=== PATIENT | male | born 1965 | race African-American/Black ===

== ENCOUNTER 2020-09-15 09:10 | Inpatient (IN) ==
[2020-09-15 10:23] LABS: Basophils % 0.2 % (0.0-0.8); Eosinophils % 0.3 % (0.00-10.9); Immature Granulocytes Absolute 0.23 #; Lymphocytes # 0.4 10*3/uL (1.4-4.0); Lymphocytes % 3.8 % (21.2-54.2); Mean Corpuscular HGB Conc 35.3 GM/DL (32-36); Mean Corpuscular Volume 87.4 FL (87-102); Mean Platelet Volume 12.1 FL (9.6-12.0); Monocytes % 6.4 % (1.7-12.7); NRBC # 0.02 10*3/uL; Neutrophils % 87.3 % (38.7-73.9); Platelet Count 183 T/CUMM (130-400); Red Blood Count 1.98 MC/CUMM (3.8-5.5); White Blood Count 11.5 T/CUMM (4-12)
[2020-09-15 10:45] LABS: Albumin 2.4 G/DL (3.4-5.0); Bilirubin,Total 1.3 MG/DL (0.20-1.00); Calcium 9.1 MG/DL (8.5-10.1); Osmolality,Calculated 291.3 MOS/KG (273-304); Potassium 3.6 MMOL/L (3.5-5.1); Total Protein 6.9 G/DL (6.4-8.2)
[2020-09-15 10:45] LABS: Hematocrit 17.3 VOL% (42.0-52.0); Hemoglobin 6.1 GM/DL (14.0-18.0)
[2020-09-15 10:48] LABS: Band Neutrophils 2 % (0-10); Lymphocytes 5 % (20-55); Microcytosis 1+; Platelet Estimate Adequate; Segmented Neutrophils 90 % (50-85); Total Cells Counted 100
[2020-09-15 10:49] LABS: Hypochromasia 1+
[2020-09-15] MEDS ORDERED: VANCOMYCIN INJ 1,000 MG in SODIUM CHLORIDE 0.9% 250 ML IV STA (10:54)
[2020-09-15] MEDS ORDERED: ONDANSETRON 4 MG/2 ML VIAL IV STA (10:55)
[2020-09-15] MEDS ORDERED: HYDROmorphone 2 MG/1 ML VIAL IV STA (10:55)
[2020-09-15] MEDS ORDERED: ONDANSETRON 4 MG/2 ML VIAL IV PRN (11:31)
[2020-09-15] MEDS ORDERED: ALBUTEROL/IPRATROPIUM 3 ML NEB RESP TX PRN (11:31)
[2020-09-15] MEDS ORDERED: hydrALAZINE 20 MG/1 ML VIAL IV PRN (11:31)
[2020-09-15] MEDS ORDERED: DEXTROSE 50% 25 GM/50 ML VIAL IV PRN (11:31)
[2020-09-15] MEDS ORDERED: GLUCAGON 1 MG VIAL IM PRN (11:31)
[2020-09-15] MEDS ORDERED: SODIUM CHLORIDE 0.9% 1,000 ML IV PRN (11:37)
[2020-09-15] MEDS ORDERED: VANCOMYCIN INJ 500 MG in SODIUM CHLORIDE 0.9% 100 ML IV PRN (12:44)
[2020-09-15] MEDS ORDERED: VANCOMYCIN INJ 750 MG in SODIUM CHLORIDE 0.9% 250 ML IV ONE (13:00)
[2020-09-15 13:52] LABS: Hematocrit 13.3 VOL% (42.0-52.0); Hemoglobin 4.5 GM/DL (14.0-18.0)
[2020-09-15] MEDS: PANTOPRAZOLE 40 MG VIAL IV SCH ×2 (17:36→21:18)
[2020-09-15] MEDS: INSULIN LISPRO 100 UNIT/ML SUBCUT SCH (17:37)
[2020-09-15] MEDS: PIPERACILLIN/TAZOBACTAM 3,375 MG in SODIUM CHLORIDE 0.9% 100 ML IV SCH (18:36)
[2020-09-15 22:48] LABS: Basophils % 0.3 % (0.0-0.8); Eosinophils # 0.1 10*3/uL (0.0-0.87); Eosinophils % 0.7 % (0.00-10.9); Hematocrit 21.6 VOL% (42.0-52.0); Immature Granulocytes % 2.1 %; Immature Granulocytes Absolute 0.25 #; Lymphocytes # 0.7 10*3/uL (1.4-4.0); Lymphocytes % 5.9 % (21.2-54.2); Mean Corpuscular HGB Conc 34.3 GM/DL (32-36); Mean Corpuscular Volume 90.4 FL (87-102); Mean Platelet Volume 11.3 FL (9.6-12.0); Monocytes % 7.8 % (1.7-12.7); Neutrophils % 83.2 % (38.7-73.9); Platelet Count 168 T/CUMM (130-400)
[2020-09-15 22:50] LABS: Hemoglobin 7.4 GM/DL (14.0-18.0); Red Blood Count 2.39 MC/CUMM (3.8-5.5)
[2020-09-16 01:53] LABS: Band Neutrophils 4 % (0-10); Lymphocytes 9 % (20-55); Segmented Neutrophils 79 % (50-85); Total Cells Counted 100
[2020-09-16 01:54] LABS: Hypochromasia 2+; Platelet Estimate Normal; Polychromasia Few; Target Cells 1+
[2020-09-16] MEDS: PIPERACILLIN/TAZOBACTAM 3,375 MG in SODIUM CHLORIDE 0.9% 100 ML IV SCH ×2 (03:09→16:18)
[2020-09-16] MEDS: INSULIN LISPRO 100 UNIT/ML SUBCUT SCH ×5 (03:10→23:31)
[2020-09-16 05:52] LABS: Basophils # 0.1 10*3/uL (0.0-0.2); Basophils % 0.4 % (0.0-0.8); Eosinophils # 0.1 10*3/uL (0.0-0.87); Eosinophils % 0.8 % (0.00-10.9); Hematocrit 22.1 VOL% (42.0-52.0); Hemoglobin 7.7 GM/DL (14.0-18.0); Immature Granulocytes % 2.8 %; Immature Granulocytes Absolute 0.35 #; Lymphocytes # 0.8 10*3/uL (1.4-4.0); Lymphocytes % 6.6 % (21.2-54.2); Mean Corpuscular HGB Conc 34.8 GM/DL (32-36); Mean Corpuscular Volume 90.6 FL (87-102); Mean Platelet Volume 11.3 FL (9.6-12.0); Monocytes % 7.6 % (1.7-12.7); Neutrophils % 81.8 % (38.7-73.9); Platelet Count 173 T/CUMM (130-400); Red Blood Count 2.44 MC/CUMM (3.8-5.5); Red Cell Distribution Width 15.2 % (9.3-17.3); White Blood Count 12.4 T/CUMM (4-12)
[2020-09-16 06:12] LABS: Calcium 9.5 MG/DL (8.5-10.1); Osmolality,Calculated 291.8 MOS/KG (273-304); Potassium 4.6 MMOL/L (3.5-5.1)
[2020-09-16 06:18] LABS: Band Neutrophils 6 % (0-10); Eosinophils 2 % (0-10); Lymphocytes 7 % (20-55); Metamyelocytes 1 %; Segmented Neutrophils 77 % (50-85)
[2020-09-16 06:23] LABS: Hypochromasia 2+; Platelet Estimate Normal; Polychromasia Few; Target Cells 1+
[2020-09-16 06:24] LABS: Total Cells Counted 100
[2020-09-16] MEDS ORDERED: SODIUM CHLORIDE 0.9% 1,000 ML IV PRN (08:18)
[2020-09-16] MEDS: PANTOPRAZOLE 40 MG VIAL IV SCH ×2 (08:27→20:56)
[2020-09-16 09:35] LABS: % Iron Saturation 29.4 % (18-50)
[2020-09-16] MEDS ORDERED: MORPHINE 2 MG/1 ML SYRINGE IV ONE (10:48)
[2020-09-16 11:08] LABS: Folate 11.99 NG/ML (5.38-24.0)
[2020-09-17] MEDS: PIPERACILLIN/TAZOBACTAM 3,375 MG in SODIUM CHLORIDE 0.9% 100 ML IV SCH (03:48)
[2020-09-17 06:10] LABS: Basophils % 0.2 % (0.0-0.8); Eosinophils # 0.1 10*3/uL (0.0-0.87); Eosinophils % 0.8 % (0.00-10.9); Hematocrit 24.3 VOL% (42.0-52.0); Hemoglobin 8.6 GM/DL (14.0-18.0); Immature Granulocytes % 2.8 %; Immature Granulocytes Absolute 0.39 #; Lymphocytes # 1.1 10*3/uL (1.4-4.0); Lymphocytes % 7.8 % (21.2-54.2); Mean Corpuscular HGB Conc 35.4 GM/DL (32-36); Mean Corpuscular Volume 87.7 FL (87-102); Mean Platelet Volume 11.1 FL (9.6-12.0); Monocytes % 6.9 % (1.7-12.7); NRBC # 0.02 10*3/uL; Neutrophils % 81.5 % (38.7-73.9); Platelet Count 206 T/CUMM (130-400); Red Blood Count 2.77 MC/CUMM (3.8-5.5); Red Cell Distribution Width 15.7 % (9.3-17.3); White Blood Count 13.7 T/CUMM (4-12)
[2020-09-17 06:38] LABS: Calcium 9.8 MG/DL (8.5-10.1); Osmolality,Calculated 294.2 MOS/KG (273-304); Potassium 4.5 MMOL/L (3.5-5.1); Thyroid Stimulating Hormone 0.915 uIU/ml (0.358-3.74)
[2020-09-17] MEDS: INSULIN LISPRO 100 UNIT/ML SUBCUT SCH ×4 (08:31→20:40)
[2020-09-17] MEDS: PANTOPRAZOLE 40 MG VIAL IV SCH ×2 (08:31→20:40)
[2020-09-17] MEDS ORDERED: HEPARIN 5,000 UNIT/1 ML VIAL ONE (14:53)
[2020-09-17] MEDS ORDERED: LIDOCAINE 1%/EPI INJ 20 ML VIAL ONE (14:53)
[2020-09-17] MEDS ORDERED: BUPIVACAINE MPF 0.25% 30 ML VIAL ONE (14:53)
[2020-09-17] MEDS ORDERED: VANCOMYCIN 500 MG VIAL ONE (15:34)
[2020-09-17] MEDS ORDERED: SODIUM CHLORIDE 0.9% 100 ML IV ONE (15:35)
[2020-09-17] MEDS ORDERED: propofoL 200 MG/20 ML VIAL IV ONE (16:51)
[2020-09-17] MEDS ORDERED: SODIUM CHLORIDE 0.9% 250 ML IV ONE ×2 (16:51→17:21)
[2020-09-17] MEDS ORDERED: LIDOCAINE 2% 5 ML VIAL ONE (16:51)
[2020-09-17] MEDS ORDERED: fentaNYL 100 MCG/2 ML VIAL ONE (17:08)
[2020-09-17] MEDS ORDERED: PHENYLEPHRINE 10 MG/1 ML VIAL IV ONE (17:10)
[2020-09-17] MEDS ORDERED: SEVOFLURANE 1 UNIT/15 MINUTE INH ONE ×2 (17:39)
[2020-09-17] MEDS ORDERED: PROMETHAZINE INJ 25 MG in SODIUM CHLORIDE 0.9% 50 ML IV PRN (17:42)
[2020-09-17] MEDS ORDERED: HYDROmorphone 2 MG/1 ML VIAL IV PRN (17:42)
[2020-09-17] MEDS ORDERED: MEPERIDINE 25 MG/1 ML VIAL IV PRN (17:42)
[2020-09-17] MEDS ORDERED: ONDANSETRON 4 MG/2 ML VIAL IV PRN (17:42)
[2020-09-17] MEDS ORDERED: diphenhydrAMINE 50 MG/1 ML VIAL IV PRN (17:42)
[2020-09-17] MEDS ORDERED: ACETAMINOPHEN INJ 1,000 MG/100 ML VIAL IV ONE ×2 (17:58→18:04)
[2020-09-18 05:42] LABS: Basophils % 0.2 % (0.0-0.8); Eosinophils # 0.1 10*3/uL (0.0-0.87); Eosinophils % 0.5 % (0.00-10.9); Hematocrit 22.6 VOL% (42.0-52.0); Hemoglobin 7.9 GM/DL (14.0-18.0); Immature Granulocytes % 2.3 %; Immature Granulocytes Absolute 0.28 #; Lymphocytes # 0.8 10*3/uL (1.4-4.0); Lymphocytes % 6.7 % (21.2-54.2); Mean Corpuscular Volume 89.3 FL (87-102); Mean Platelet Volume 11.3 FL (9.6-12.0); Monocytes % 6.6 % (1.7-12.7); NRBC # 0.02 10*3/uL; Neutrophils % 83.7 % (38.7-73.9); Platelet Count 207 T/CUMM (130-400); Red Blood Count 2.53 MC/CUMM (3.8-5.5); Red Cell Distribution Width 16.3 % (9.3-17.3); White Blood Count 12.4 T/CUMM (4-12)
[2020-09-18 06:03] LABS: Calcium 8.9 MG/DL (8.5-10.1)
[2020-09-18] MEDS: INSULIN LISPRO 100 UNIT/ML SUBCUT SCH ×4 (07:49→21:19)
[2020-09-18] MEDS: ceFAZolin 2,000 MG/50 ML DUPLEX IV SCH (18:40)
[2020-09-19 06:16] LABS: Basophils % 0.2 % (0.0-0.8); Eosinophils # 0.2 10*3/uL (0.0-0.87); Eosinophils % 1.2 % (0.00-10.9); Hematocrit 20.7 VOL% (42.0-52.0); Hemoglobin 7.2 GM/DL (14.0-18.0); Immature Granulocytes % 2.2 %; Immature Granulocytes Absolute 0.27 #; Lymphocytes # 1.3 10*3/uL (1.4-4.0); Lymphocytes % 10.3 % (21.2-54.2); Mean Corpuscular HGB Conc 34.8 GM/DL (32-36); Mean Corpuscular Volume 88.8 FL (87-102); Mean Platelet Volume 11.1 FL (9.6-12.0); Neutrophils % 78.1 % (38.7-73.9); Platelet Count 237 T/CUMM (130-400); Red Blood Count 2.33 MC/CUMM (3.8-5.5); Red Cell Distribution Width 16.5 % (9.3-17.3); White Blood Count 12.2 T/CUMM (4-12)
[2020-09-19 06:45] LABS: Osmolality,Calculated 291.1 MOS/KG (273-304); Potassium 3.8 MMOL/L (3.5-5.1)
[2020-09-19] MEDS: INSULIN LISPRO 100 UNIT/ML SUBCUT SCH ×4 (09:14→20:22)
[2020-09-20 06:22] LABS: Basophils % 0.2 % (0.0-0.8); Eosinophils # 0.2 10*3/uL (0.0-0.87); Eosinophils % 1.8 % (0.00-10.9); Hematocrit 22.4 VOL% (42.0-52.0); Hemoglobin 7.5 GM/DL (14.0-18.0); Immature Granulocytes % 1.4 %; Immature Granulocytes Absolute 0.14 #; Lymphocytes % 9.7 % (21.2-54.2); Mean Corpuscular HGB Conc 33.5 GM/DL (32-36); Mean Corpuscular Volume 91.4 FL (87-102); Mean Platelet Volume 10.7 FL (9.6-12.0); Monocytes % 7.3 % (1.7-12.7); Neutrophils % 79.6 % (38.7-73.9); Platelet Count 249 T/CUMM (130-400); Red Blood Count 2.45 MC/CUMM (3.8-5.5); Red Cell Distribution Width 17.2 % (9.3-17.3); White Blood Count 9.8 T/CUMM (4-12)
[2020-09-20] MEDS: INSULIN LISPRO 100 UNIT/ML SUBCUT SCH ×3 (06:36→20:25)
[2020-09-20] MEDS ORDERED: propofoL 200 MG/20 ML VIAL IV ONE ×2 (06:36→06:38)
[2020-09-20] MEDS ORDERED: fentaNYL 100 MCG/2 ML VIAL ONE (06:36)
[2020-09-20] MEDS ORDERED: LIDOCAINE 2% 5 ML VIAL ONE (06:36)
[2020-09-20] MEDS ORDERED: MIDAZOLAM 2 MG/2 ML VIAL ONE (06:37)
[2020-09-20] MEDS ORDERED: HEPARIN 5,000 UNIT/1 ML VIAL ONE (06:45)
[2020-09-20] MEDS ORDERED: LIDOCAINE 1%/EPI INJ 20 ML VIAL ONE (06:45)
[2020-09-20] MEDS ORDERED: BUPIVACAINE MPF 0.25% 30 ML VIAL ONE (06:45)
[2020-09-20 06:55] LABS: Calcium 8.9 MG/DL (8.5-10.1); Osmolality,Calculated 298.1 MOS/KG (273-304); Potassium 3.9 MMOL/L (3.5-5.1)
[2020-09-20] MEDS ORDERED: SODIUM CHLORIDE 0.9% 250 ML IV SCH (07:00)
[2020-09-20] MEDS ORDERED: KETAMINE 500 MG/10 ML VIAL ONE (07:17)
[2020-09-20] MEDS ORDERED: ONDANSETRON 4 MG/2 ML VIAL ONE (07:28)
[2020-09-20] MEDS ORDERED: HEPARIN 10,000 UNIT/10 ML VIAL IV SCH (11:00)
[2020-09-20] MEDS ORDERED: GENTAMICIN INJ 110 MG in SODIUM CHLORIDE 0.9% 100 ML IV ONE (15:46)
[2020-09-20] MEDS: ceFAZolin 2,000 MG/50 ML DUPLEX IV SCH (17:03)
[2020-09-21 05:44] LABS: Basophils % 0.2 % (0.0-0.8); Eosinophils # 0.2 10*3/uL (0.0-0.87); Eosinophils % 2.2 % (0.00-10.9); Hematocrit 22.2 VOL% (42.0-52.0); Hemoglobin 7.3 GM/DL (14.0-18.0); Immature Granulocytes Absolute 0.09 #; Lymphocytes # 1.4 10*3/uL (1.4-4.0); Lymphocytes % 15.3 % (21.2-54.2); Mean Corpuscular HGB Conc 32.9 GM/DL (32-36); Mean Corpuscular Volume 91.7 FL (87-102); Mean Platelet Volume 10.8 FL (9.6-12.0); Monocytes % 9.7 % (1.7-12.7); Neutrophils % 71.6 % (38.7-73.9); Platelet Count 280 T/CUMM (130-400); Red Blood Count 2.42 MC/CUMM (3.8-5.5); Red Cell Distribution Width 17.2 % (9.3-17.3); White Blood Count 9.2 T/CUMM (4-12)
[2020-09-21 06:19] LABS: Calcium 9.2 MG/DL (8.5-10.1); Osmolality,Calculated 287.1 MOS/KG (273-304); Potassium 3.7 MMOL/L (3.5-5.1)
[2020-09-21] MEDS: INSULIN LISPRO 100 UNIT/ML SUBCUT SCH ×4 (08:50→19:44)
[2020-09-21] MEDS ORDERED: MIDAZOLAM 10 MG/2 ML VIAL ONE (12:25)
[2020-09-21] MEDS ORDERED: MEPERIDINE 25 MG/1 ML VIAL ONE (12:25)
[2020-09-21] MEDS ORDERED: MEPERIDINE 50 MG/1 ML VIAL IV ONE (13:18)
[2020-09-21] MEDS ORDERED: MIDAZOLAM 2 MG/2 ML VIAL IV ONE (13:18)
[2020-09-21] MEDS ORDERED: SODIUM CHLORIDE 0.9% 1,000 ML IV PRN (15:35)
[2020-09-22] MEDS: INSULIN LISPRO 100 UNIT/ML SUBCUT SCH ×3 (08:23→16:01)
[2020-09-22] MEDS: GENTAMICIN INJ 80 MG/50 ML PREMIX IV SCH ×2 (15:53→16:31)
[2020-09-22 15:57] VITALS: BP 114/67
== END 2020-09-22 18:15 | disposition home or self-care (01) | DRG 252 ==
LOC: EDUNIT# → N.ED 09:10 → SUATTDRO 11:31 → N.EDINP 11:31 → N.5E 12:55
PROVIDERS: ADMIT Internal Medicine; ATTEND Phlebology
PROC: VAVDCFI (2020-09-17 16:47)